=== PATIENT | male | born 1965 | race Caucasian/White ===

== ENCOUNTER 2021-01-12 14:28 | Emergency (ER) | payer SELFPAY ==
[~2021-01-12] VITALS: Ht 180.3 cm; Wt 75.0 kg
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
[2021-01-12] MEDS ORDERED: fentaNYL PF VIAL 100 MCG/2 ML VIAL IVP ONE (17:45)
[2021-01-12] MEDS ORDERED: CLINDAMYCIN 600MG PREMIX 50 ML IV ONE (18:45)
[2021-01-12 20:20] VITALS: BP 169/97
== END 2021-01-12 20:10 | disposition short-term general hospital (02) ==
LOC: ER 14:28
DX: S02.85XA Fracture of orbit, unspecified, initial encounter for closed fracture (principal); S02.401A Maxillary fracture, unspecified side, initial encounter for closed fracture; S02.2XXA Fracture of nasal bones, initial encounter for closed fracture; F17.200 Nicotine dependence, unspecified, uncomplicated; Z88.0 Allergy status to penicillin; Y08.89XA Assault by other specified means, initial encounter; Y93.89 Activity, other specified; Y92.89 Other specified places as the place of occurrence of the external cause; Y99.8 Other external cause status
CPT/HCPCS: 70450; 70486; 72125; 96365; 96375; 99284; J3010; J3490